=== PATIENT | female | born 1955 | race Caucasian/White ===

== ENCOUNTER → 2017-08-27 | Outpatient (CLI) | payer OTHER ==
[~2017-08-27] MED LIST: FLUO20CA19 PO; FLUO20CA8 PO
== END | disposition home or self-care (01) ==
LOC: CFH 10:39
PROVIDERS: ATTEND Family Medicine
DX: Z12.31 Encounter for screening mammogram for malignant neoplasm of breast (principal)
CPT/HCPCS: G0202

== ENCOUNTER 2017-08-29 12:40 | Inpatient (IN) | payer OTHER ==
[~2017-08-29] VITALS: Ht 162.6 cm; Wt 87.9 kg
[2017-08-29] MEDS ORDERED: FLUO20CA19 PO (12:58)
[2017-08-29] MEDS ORDERED: NITROGLYCERIN OINT 2%, 1GM TP ONE ×2 (13:00→13:01)
[2017-08-29] MEDS ORDERED: SODIUM CHLORIDE FLUSH 10ML SYR IVF ONE (13:00)
[2017-08-29 13:09] LABS: HEMATOCRIT 46.2 % (34.6-47.8); HEMOGLOBIN 15.9 g/dL (11.7-16.4)
[2017-08-29 13:21] LABS: BLOOD UREA NITROGEN 15 mg/dL (7-18)
[2017-08-29 13:27] LABS: IS PT STATUS REG ER OR PRE ER? YES
[2017-08-29] MEDS ORDERED: LABETALOL 5MG/ML, 20ML IVPush PRN (15:00)
[2017-08-29] MEDS ORDERED: FLUOXETINE 20 MG CAPSULE PO SCH (15:00)
[2017-08-29] MEDS ORDERED: morphine SULFATE 10 MG/ML, 1ML IVPush PRN (15:00)
[2017-08-29] MEDS ORDERED: ACETAMINOPHEN 325 MG TABLET PO PRN (15:00)
[2017-08-29] MEDS ORDERED: ENOXAPARIN 40 MG/0.4 ML SQ SCH (15:00)
[2017-08-29] MEDS ORDERED: LORazepam 1MG TABLET PO PRN (15:00)
[2017-08-29] MEDS ORDERED: ALBUTEROL/IPRATROPIUM 2.5MG/0.5MG, 3 ML NEB PRN (15:00)
[2017-08-29] MEDS ORDERED: POLYETHYLENE GLYCOL 17 GM PACKET PO PRN (15:00)
[2017-08-29] MEDS ORDERED: DOCUSATE 100 MG CAPSULE PO PRN (15:00)
[2017-08-29] MEDS ORDERED: BISACODYL 10 MG SUPP PR PRN (15:00)
[2017-08-29] MEDS ORDERED: NITROGLYCERIN 0.4 MG/SPRAY SL PRN (15:00)
[2017-08-29] MEDS ORDERED: ONDANSETRON ODT 4 MG PO PRN (15:00)
[2017-08-29] MEDS ORDERED: ONDANSETRON 2MG/ML, 2ML IVPush PRN (15:00)
[2017-08-29 18:30] VITALS: BP 121/76
[2017-08-29 18:57] LABS: IS PT STATUS REG ER OR PRE ER? NO
[2017-08-29 19:44] VITALS: BP 117/72
[2017-08-30 01:05] LABS: IS PT STATUS REG ER OR PRE ER? NO
[2017-08-30 02:00] VITALS: BP 120/71
[2017-08-30 04:49] LABS: HEMATOCRIT 43.6 % (34.6-47.8); HEMOGLOBIN 14.9 g/dL (11.7-16.4); WHITE BLOOD COUNT 6.6 x10^3/uL (3.4-10)
[2017-08-30 04:57] LABS: BLOOD UREA NITROGEN 15 mg/dL (7-18)
[2017-08-30 09:56] VITALS: BP 135/75
[2017-08-30 14:18] VITALS: BP 144/76
[2017-08-30] MEDS ORDERED: FLUO20CA8 PO (15:43)
== END 2017-08-30 18:11 | disposition home or self-care (01) | DRG 880 ==
LOC: ED 13:57 → EDIP 15:28 → 5SO 17:55
PROVIDERS: ADMIT Internal Medicine; ATTEND Internal Medicine
DX: F41.0 Panic disorder [episodic paroxysmal anxiety] (principal); I24.9 Acute ischemic heart disease, unspecified; I10 Essential (primary) hypertension; F32.9 Major depressive disorder, single episode, unspecified; E11.9 Type 2 diabetes mellitus without complications; E78.5 Hyperlipidemia, unspecified; J45.909 Unspecified asthma, uncomplicated; G43.909 Migraine, unspecified, not intractable, without status migrainosus; Z90.710 Acquired absence of both cervix and uterus; F17.210 Nicotine dependence, cigarettes, uncomplicated; Z83.3 Family history of diabetes mellitus
CPT/HCPCS: 36415; 71010; 78452; 80048; 80061; 82040; 83735; 83880; 84100; 84439; 84443; 84484; 85025; 93005; 93017; J1650; A9502; C9898

== ENCOUNTER → 2018-03-15 | Outpatient (CLI) | payer MEDICARE, OTHER | END | disposition home or self-care (01) | LOC: CFH 08:24 | PROVIDERS: ATTEND Family Medicine | DX: M25.551 Pain in right hip (principal); M25.552 Pain in left hip; M47.894 Other spondylosis, thoracic region; M85.88 Other specified disorders of bone density and structure, other site; N95.1 Menopausal and female climacteric states | CPT/HCPCS: 72114; 73523; 77080 ==

== ENCOUNTER → 2019-10-26 | Outpatient (CLI) | payer MEDICARE, OTHER ==
[~2019-10-26] MED LIST changes: +OMNIPAQUE 350 MG/ML, 100ML BOTTLE ONE
[2019-10-26 11:34] LABS: CREATININE 0.83 mg/dL (0.55-1.02)
== END | disposition home or self-care (01) ==
LOC: RAD 10:48
PROVIDERS: ATTEND Nurse Practitioner
DX: K57.30 Diverticulosis of large intestine without perforation or abscess without bleeding (principal); K76.0 Fatty (change of) liver, not elsewhere classified; F41.9 Anxiety disorder, unspecified; E11.9 Type 2 diabetes mellitus without complications; I10 Essential (primary) hypertension; K21.9 Gastro-esophageal reflux disease without esophagitis; J45.909 Unspecified asthma, uncomplicated; Z87.891 Personal history of nicotine dependence; Z90.710 Acquired absence of both cervix and uterus
CPT/HCPCS: 36415; 74177; 82565; Q9967

== ENCOUNTER → 2019-11-16 | Outpatient (CLI) | payer MEDICARE, OTHER ==
[~2019-11-16] MED LIST changes: -OMNIPAQUE 350 MG/ML, 100ML BOTTLE ONE; +REGADENOSON 0.4 MG/5 ML SYRINGE ONE
== END | disposition home or self-care (01) ==
LOC: CFH 07:05
PROVIDERS: ATTEND Family Medicine
DX: Z12.31 Encounter for screening mammogram for malignant neoplasm of breast (principal); N64.89 Other specified disorders of breast; I99.8 Other disorder of circulatory system; E11.9 Type 2 diabetes mellitus without complications; E78.5 Hyperlipidemia, unspecified; I10 Essential (primary) hypertension
CPT/HCPCS: 77063; 77067; 78452; 93017; 93306; A9502; J2785

== ENCOUNTER → 2020-04-18 | Outpatient (CLI) | payer MEDICARE, OTHER ==
[~2020-04-18] MED LIST changes: +FLUO20CA23 PO; -FLUO20CA8 PO; -REGADENOSON 0.4 MG/5 ML SYRINGE ONE
== END | disposition home or self-care (01) ==
LOC: CFH 07:58
PROVIDERS: ATTEND Family Medicine
DX: M85.88 Other specified disorders of bone density and structure, other site (principal); N95.1 Menopausal and female climacteric states
CPT/HCPCS: 77080

== ENCOUNTER → 2021-04-02 | Outpatient (CLI) | payer MEDICARE, OTHER | END | disposition home or self-care (01) | LOC: CFH 10:02 | PROVIDERS: ATTEND Family Medicine | DX: Z12.31 Encounter for screening mammogram for malignant neoplasm of breast (principal) | CPT/HCPCS: 77063; 77067 ==